=== PATIENT | female | born 1935 | race Caucasian/White ===

== ENCOUNTER 2016-11-27 11:55 | Inpatient (IN) | payer MEDICARE, OTHER ==
[~2016-11-27] VITALS: Ht 167.6 cm; Wt 50.2 kg
[2016-11-27 12:00] VITALS: BP 122/69; PULSE 90; RESP 20; TEMP 98.2; O2SAT 96
--- NOTE | 2016-11-27 12:19 | PD ---
Physical Exam Time Seen by Provider: 12:17 Narrative 81 y/o female dx with facial fracture yesterday at [facility]. Continues to have pain and was hoping to see a maxillofacial surgeon sooner which is why she is here today. Vital signs reviewed. Seen at triage desk. Awaiting bed placement. Data Data Last Documented VS Vital Signs Date Time Temp Pulse Resp B/P Pulse Ox O2 Delivery O2 Flow Rate FiO2 11/27/16 12:00 98.2 90 20 122/69 96 Room Air [facility] Medical Record Reviewed: Yes Supervised Visit with DONNA: Estevan Connor Nov 27, 2016 12:19
--- NOTE | 2016-11-27 15:13 | PD ---
HPI Chief Complaint: Medical Clearance Time Seen by Provider: 15:12 Travel History International Travel<30 days: No Contact w/Intl Traveler<30days: No Traveled to known affect area: No History of Present Illness HPI 81-year-old female came to the emergency room for mandibular fracture. And says that she fell yesterday and landed on her chin. She was seen in the emergency room at [facility]. There was a CT done of her face, head and C-spine. The CT of her face shows comminuted mandibular fracture. She brought the reports with her. She was supposed to follow up with Dr. Navas in [place] who is a maxillofacial surgeon. However she found out that he does not accept Medicare. So she came to the [facility] to be seen by a facial doctor here. She ate some soup 1 hour prior to coming to the emergency room. She did not appear to be in any significant distress. [facility] Past Medical History Narrative Medical List of her past medical, surgical, social and family history was reviewed from the nursing note. Social History Tobacco Use: No Allergies-Medications (Allergen,Severity, Reaction): Coded Allergies: No Known Allergies (Unverified , 11/27/16) Comments Awaiting for the nurse to do the medication reconciliation. Reported Meds & Prescriptions Reported Meds & Active Scripts Active Reported Montelukast (Montelukast Sodium) 10 Mg Tab 10 Mg PO HS Levothyroxine (Levothyroxine Sodium) 25 Mcg Tab 25 Mcg PO DAILY Narrative Medication Awaiting for the nurse to the med reconciliation. Review of Systems Except as stated in HPI: all other systems reviewed are Neg Physical Exam Narrative GENERAL: Awake, alert, no obvious distress SKIN: Focused skin assessment warm/dry. Band-Aids on the chin applied. Chin swelling and tenderness HEAD: Atraumatic. Normocephalic. EYES: Pupils equal and round. No scleral icterus. No injection or drainage. ENT: No nasal bleeding or discharge. Mucous membranes pink and moist. NECK: Trachea midline. No JVD. CARDIOVASCULAR: Regular rate and rhythm. No murmur appreciated. RESPIRATORY: No accessory muscle use. Clear to auscultation. Breath sounds equal bilaterally. GASTROINTESTINAL: Abdomen soft, non-tender, nondistended. Hepatic and splenic margins not palpable. MUSCULOSKELETAL: No obvious deformities. No clubbing. No cyanosis. No edema. NEUROLOGICAL: Awake and alert. No obvious cranial nerve deficits. Motor grossly within normal limits. Normal speech. PSYCHIATRIC: Appropriate mood and affect; insight and judgment normal. Data Data Last Documented VS Vital Signs Date Time Temp Pulse Resp B/P Pulse Ox O2 Delivery O2 Flow Rate FiO2 11/27/16 12:00 98.2 90 20 122/69 96 Room Air Orders Complete Blood Count With Diff (11/27/16 15:26) Basic Metabolic Panel (Bmp) (11/27/16 15:26) Prothrombin Time / Inr (Pt) (11/27/16 15:26) ^ Saline Lock (11/27/16 15:26) NPO (11/27/16 15:26) Admit Order (Ed Use Only) (11/27/16 15:52) Admit To Inpatient (11/27/16 ) Vital Signs (Adult) Q4H (11/27/16 15:50) Activity Oob Ad Amie (11/27/16 15:50) Sodium Chloride 0.9% Flush (Ns Flush) (11/27/16 16:00) Sodium Chloride 0.9% Flush (Ns Flush) (11/27/16 21:00) Ondansetron Inj (Zofran Inj) (11/27/16 16:00) Scd Bilateral/Knee High JAJA.BID (11/27/16 15:50) Acetaminophen (Tylenol) (11/27/16 16:00) Acetamin-Hydrocod 325-5 Mg (Benjamin 5-325 (11/27/16 16:00) Acetamin-Hydrocod 325-7.5 Mg (Benjamin 7.5 (11/27/16 16:00) Morphine Inj (Morphine Inj) (11/27/16 16:00) Morphine Inj (Morphine Inj) (11/27/16 16:00) Naloxone Inj (Narcan Inj) (11/27/16 16:00) Docusate Sodium-Senna (Paulette-Colace) (11/27/16 21:00) Magnesium Hydroxide Liq (Milk Of Magnesi (11/27/16 16:00) Sennosides (Senokot) (11/27/16 16:00) Bisacodyl Supp (Dulcolax Supp) (11/27/16 16:00) Lactulose Liq (Lactulose Liq) (11/27/16 16:00) Inpatient Certification (11/27/16 ) Labs Laboratory Tests Test 11/27/16 15:45 White Blood Count 8.2 TH/MM3 Red Blood Count 3.85 MIL/MM3 Hemoglobin 12.9 GM/DL Hematocrit 38.3 % Mean Corpuscular Volume 99.4 FL Mean Corpuscular Hemoglobin 33.5 PG Mean Corpuscular Hemoglobin 33.7 % Concent Red Cell Distribution Width 13.9 % Platelet Count 256 TH/MM3 Mean Platelet Volume 8.4 FL Neutrophils (%) (Auto) 69.5 % Lymphocytes (%) (Auto) 18.9 % Monocytes (%) (Auto) 9.3 % Eosinophils (%) (Auto) 1.8 % Basophils (%) (Auto) 0.5 % Neutrophils # (Auto) 5.7 TH/MM3 Lymphocytes # (Auto) 1.5 TH/MM3 Monocytes # (Auto) 0.8 TH/MM3 Eosinophils # (Auto) 0.1 TH/MM3 Basophils # (Auto) 0.0 TH/MM3 CBC Comment DIFF FINAL Differential Comment Prothrombin Time 10.6 SEC Prothromb Time International 1.0 RATIO Ratio Sodium Level 141 MEQ/L Potassium Level 4.2 MEQ/L Chloride Level 107 MEQ/L Carbon Dioxide Level 26.9 MEQ/L Anion Gap 7 MEQ/L Blood Urea Nitrogen 20 MG/DL Creatinine 0.74 MG/DL Estimat Glomerular Filtration 75 ML/MIN Rate Random Glucose 123 MG/DL Calcium Level 8.9 MG/DL MDM Medical Decision Making Medical Screen Exam Complete: Yes Emergency Medical Condition: Yes Medical Record Reviewed: Yes Differential Diagnosis Mandibular fracture Narrative Course 3:35 PM I discussed the case with Dr. Gonzales who is on-call for facial and he after hearing the CT report asked me to admit the patient since she will require surgery. Awaiting for the hospitalist to call back. I have let the patient know about that and she was happy to know that she would be taken care off today. Procedures EKG Prior to Arrival: No Physician Communication Physician Communication Dr. Gonzales Diagnosis Primary Impression: Comminuted fracture of mandibular alveolar bone Qualified Code: S02.670A - Comminuted fracture of mandibular alveolar bone, closed, initial encounter Admitting Information Admitting Physician Requests: Admit Anika Cano MD Nov 27, 2016 15:13 Anika Cano MD Nov 27, 2016 15:13
[2016-11-27] MEDS ORDERED: LEVO25TA4 PO (15:34)
[2016-11-27] MEDS ORDERED: MONT10TA4 PO (15:34)
[2016-11-27] MEDS ORDERED: SENNOSIDES 8.6 MG TAB PO PRN (16:00)
[2016-11-27] MEDS ORDERED: ACETAMINOPHEN/HYDROcodone 325 MG/7.5 MG TAB PO PRN (16:00)
[2016-11-27] MEDS ORDERED: ONDANSETRON HCL 4 MG/2 ML VIAL IVP PRN (16:00)
[2016-11-27] MEDS ORDERED: LACTULOSE SYRUP 20 GM/30 ML CUP PO PRN (16:00)
[2016-11-27] MEDS ORDERED: ACETAMINOPHEN/HYDROcodone 325 MG/5 MG TAB PO PRN (16:00)
[2016-11-27] MEDS ORDERED: SODIUM CHLORIDE 0.9% FLUSH 10 ML FLUSH IV FLUSH PRN (16:00)
[2016-11-27] MEDS ORDERED: NALOXONE HCL 0.4 MG/ML AMP IV PRN (16:00)
[2016-11-27] MEDS ORDERED: ACETAMINOPHEN 325 MG TAB PO PRN (16:00)
[2016-11-27] MEDS ORDERED: BISACODYL 10 MG SUPP RECTAL PRN (16:00)
[2016-11-27] MEDS ORDERED: MORPHINE SULFATE 4 MG/ML INJ IV PRN ×2 (16:00)
[2016-11-27] MEDS ORDERED: MAGNESIUM HYDROXIDE SUSP 30 ML CUP PO PRN (16:00)
[2016-11-27 16:07] VITALS: BP 148/73; PULSE 80; RESP 17; O2SAT 99
[2016-11-27 16:24] LABS: AUTOMATED NEUTROPHIL # 5.7 TH/MM3 (1.8-7.7); BASOPHIL % 0.5 % (0.0-2.0); EOSINOPHIL # 0.1 TH/MM3 (0-0.4); EOSINOPHIL % 1.8 % (0.0-4.0); HEMATOCRIT 38.3 % (35.0-46.0); HEMO FLAGS DIFF FINAL; LYMPH % 18.9 % (9.0-44.0); LYMPHOCYTE # 1.5 TH/MM3 (1.0-4.8); MEAN CELL VOLUME 99.4 FL (80.0-100.0); MEAN CORPUSCULAR HEMOGLOBIN 33.5 PG (27.0-34.0); MEAN CORPUSCULAR HGB CONC 33.7 % (32.0-36.0); MONO % 9.3 % (0.0-8.0); NEUT % 69.5 % (16.0-70.0); PLATELET COUNT 256 TH/MM3 (150-450); RED BLOOD COUNT 3.85 MIL/MM3 (4.00-5.30); RED CELL DISTRIBUTION WIDTH 13.9 % (11.6-17.2); WHITE BLOOD COUNT 8.2 TH/MM3 (4.0-11.0)
[2016-11-27 16:31] LABS: PROTHROMBIN TIME - PATIENT 10.6 SEC (9.8-11.6)
[2016-11-27 16:48] LABS: BICARBONATE 26.9 MEQ/L (21.0-32.0); POTASSIUM 4.2 MEQ/L (3.5-5.1)
--- NOTE | 2016-11-27 16:53 | HHI.HP ---
HPI Service [facility] Hospitalists Primary Care Physician Tyron Park MD Admission Diagnosis comminuted mandibular fracture Diagnoses: Chief Complaint: Jaw pain I fell Travel History International Travel<30 Days: No Contact w/Intl Traveler <30 Da: No Traveled to Known Affected Are: No History of Present Illness 81-year-old white female with history hypothyroidism yesterday morning and fell on her face with no signs of losing consciousness was seen at [facility] and referral out to a orofacial maxillary surgeon in [place] to follow-up with her diagnosed comminuted mandibular fracture. Her family convinced her to come to [place] due to the fact that the surgeon in [place] did not take Medicare. She states since the fall she had difficulty chewing and at times had difficulty swallowing pills or solid food. She denies any other symptoms at this time. Review of Systems Constitutional: DENIES: Fatigue, Fever, Chills, Change in appetite Endocrine: DENIES: Heat/cold intolerance Eyes: DENIES: Blurred vision, Eye pain, Vision loss Ears, nose, mouth, throat: DENIES: Hearing loss, Nasal discharge, Throat pain, Ear Pain, Sinus Pain Respiratory: DENIES: Cough, Shortness of breath Cardiovascular: DENIES: Chest pain, Palpitations, Dyspnea on Exertion, Lower Extremity Edema Gastrointestinal: DENIES: Abdominal pain, Black stools, Bloody stools, Constipation, Diarrhea, Nausea, Vomiting Genitourinary: DENIES: Dysuria Musculoskeletal: COMPLAINS OF: Joint pain (jaw pain jaw pain), DENIES: Muscle aches, Stiffness Integumentary: DENIES: Rash Hematologic/lymphatic: DENIES: Bruising, Lymphadenopathy Immunologic/allergic: DENIES: Eczema Neurologic: DENIES: Headache, Localized weakness, Paresthesias Psychiatric: DENIES: Anxiety, Depression, Suicidal Ideation Past Family Social History Past Medical History Hypothyroidism Past Surgical History None Reported Medications Levothyroxine 25 MCG by mouth daily Singulair 10 mg by mouth daily at bedtime Allergies: Coded Allergies: No Known Allergies (Unverified , 11/27/16) Family History None per patient Social History Does not smoke cigarettes or drink alcohol Physical Exam Vital Signs Vital Signs Date Time Temp Pulse Resp B/P Pulse Ox O2 Delivery O2 Flow Rate FiO2 11/27/16 16:07 80 17 148/73 99 Room Air 11/27/16 12:00 98.2 90 20 122/69 96 Room Air Physical Exam GENERAL: This is a well-nourished, well-developed patient, in no apparent distress. SKIN: Mild swelling over the right sided chin HEAD: Atraumatic. Normocephalic. No temporal or scalp tenderness. EYES: Pupils equal round and reactive. Extraocular motions intact. No scleral icterus. No injection or drainage. ENT: Nose without bleeding, purulent drainage or septal hematoma. Tenderness on palpation of the right side of the chin and mandible jawline NECK: Trachea midline. No JVD or lymphadenopathy. Supple, nontender, no meningeal signs. CARDIOVASCULAR: Regular rate and rhythm RESPIRATORY: Clear to auscultation. Breath sounds equal bilaterally. No wheezes , rales, or rhonchi. GASTROINTESTINAL: Abdomen soft, non-tender, nondistended. No hepato-splenomegaly , or palpable masses. No guarding. Normoactive bowel sounds. MUSCULOSKELETAL: Extremities without clubbing, cyanosis, or edema. No joint tenderness, effusion, or edema noted. No calf tenderness. Negative Homans sign bilaterally. NEUROLOGICAL: Awake and alert to person place time and situation. Cranial nerves II through XII intact. Motor and sensory grossly within normal limits. Five out of 5 muscle strength in all muscle groups. Normal speech. Laboratory Laboratory Tests Test 11/27/16 15:45 White Blood Count 8.2 Red Blood Count 3.85 Hemoglobin 12.9 Hematocrit 38.3 Mean Corpuscular Volume 99.4 Mean Corpuscular Hemoglobin 33.5 Mean Corpuscular Hemoglobin 33.7 Concent Red Cell Distribution Width 13.9 Platelet Count 256 Mean Platelet Volume 8.4 Neutrophils (%) (Auto) 69.5 Lymphocytes (%) (Auto) 18.9 Monocytes (%) (Auto) 9.3 Eosinophils (%) (Auto) 1.8 Basophils (%) (Auto) 0.5 Neutrophils # (Auto) 5.7 Lymphocytes # (Auto) 1.5 Monocytes # (Auto) 0.8 Eosinophils # (Auto) 0.1 Basophils # (Auto) 0.0 CBC Comment DIFF FINAL Differential Comment Prothrombin Time 10.6 Prothromb Time International 1.0 Ratio Sodium Level 141 Potassium Level 4.2 Chloride Level 107 Carbon Dioxide Level 26.9 Anion Gap 7 Blood Urea Nitrogen 20 Creatinine 0.74 Estimat Glomerular Filtration 75 Rate Random Glucose 123 Calcium Level 8.9 Result Diagram: 11/27/16 1545 11/27/16 1545 Imaging Per ED physician report from [facility] show comminuted mandibular fracture 4 hospital days were dictation by Dr. Cleaning shows bilateral mandible condylar fractures with nondisplaced mandible fracture. Assessment and Plan Problem List: (1) Comminuted fracture of mandibular alveolar bone ICD Code: S02.670A Status: Acute (2) Hypothyroidism ICD Code: E03.9 Status: Chronic Assessment and Plan 1. Status post fall with comminuted bilateral condylar mandibular fractureDr. Christian consulted in the emergency recommends surgical intervention. This time will place patient nothing by mouth until evaluation with Dr. Gonzales. 2. Hypothyroidism, chronic resume Synthroid 3. DVT prophylaxisbilateral SCDs, anticoagulation will hold due to pending surgery. Physician Certification 2 Midnight Certification Type: Admission for Inpatient Services Order for Inpatient Services The services are ordered in accordance with Medicare regulations or non- Medicare payer requirements, as applicable. In the case of services not specified as inpatient-only, they are appropriately provided as inpatient services in accordance with the 2-midnight benchmark. Estimated LOS (days): 2 days is the estimated time the patient will need to remain in the hospital, assuming treatment plan goals are met and no additional complications. Post-Hospital Plan: Home Problem Qualifiers (1) Comminuted fracture of mandibular alveolar bone: Qualified Code: S02.670A - Comminuted fracture of mandibular alveolar bone, closed, initial encounter Maria Luisa Mendez MD Nov 27, 2016 16:53
[2016-11-27 17:09] VITALS: BP 151/72; PULSE 79; RESP 16
[2016-11-27 18:00] VITALS: BP 139/74; PULSE 85; RESP 18; TEMP 98; O2SAT 96
--- NOTE | 2016-11-27 18:02 | RADRPT ---
EXAM DATE/TIME: 11/27/2016 17:33 [place] COMPARISON: No previous studies available for comparison. INDICATIONS : Fall, pain and bruising to chin. RADIATION DOSE: 56.76 CTDIvol (mGy) MEDICAL HISTORY : None SURGICAL HISTORY : None. ENCOUNTER: Initial ACUITY: 1 day PAIN SCORE: 4/10 LOCATION: facial TECHNIQUE: Volumetric scanning of the facial bones was performed. Using automated exposure control and adjustme nt of the mA and/or kV according to patient size, radiation dose was kept as low as reasonably achiev able to obtain optimal diagnostic quality images. DICOM format image data is available electronicall y for review and comparison. FINDINGS: ORBITS: The orbital and infraorbital osseous structures are intact. The retroconal structures have a normal configuration. No radiopaque foreign bodies are seen. NASAL BONE: The nasal bone and maxillary spine are intact ZYGOMATIC ARCHES: Symmetric without evidence of fracture. MANDIBLE: There is evidence of acute displaced fractures involving the bilateral mandibular condyles as well as the left side of the mental protruberance. There is dislocation of the right mandibular condyle. SINUSES: The maxillary, ethmoid and frontal sinuses are intact. No air-fluid levels seen. NASAL CAVITY: The nasal septum is intact and midline. The lacrimal ducts are intact. SOFT TISSUES: No radiopaque foreign bodies seen. No soft-tissue swelling is seen. INTRACRANIAL: No intracranial air seen. CRIBIFORM PLATE: Grossly intact. CONCLUSION: Acute displaced fractures involving the bilateral mandibular condyles as well as the left side of the mental protruberance. There is dislocation of the right mandibular condyle. Alexsander Amaro MD on November 27, 2016 at 17:54 Board Certified Radiologist. This report was verified electronically.
--- NOTE | 2016-11-27 19:21 | MB ---
cc: BIMALJOSHUASULEIMAN DMD (fax to Dr. Gonzales's office) DATE OF CONSULTATION 11/27/16 REASON FOR CONSULTATION Mandible fractures. HISTORY OF PRESENT ILLNESS This is a pleasant 81-year-old female who is status post a trip and a fall in her backyard yesterday. It resulted in her having fallen on her chin and then having her mandible fractured and her symphysis bilateral condyle fracture. She then proceeded on to [facility] and then she was supposed to be done following up with the surgeon in [place] but she was unable to. She or called my office earlier today explaining their blight. Advised to have follow up in the ED at [place] for evaluation and treatment as required. I have seen and examined the patient this afternoon. She is alert, awake and oriented x3 in no acute distress. She is complaining that her bite does not line up properly and she is unable to open wide completely. Denies any fever, chills, nausea, vomiting, any shortness of breath, any difficulty swallowing or difficulty breathing or difficulty speaking. She did have some soup/milk/milk shakes three hours ago. Denies any neck pain. PAST MEDICAL HISTORY 1. Hypothyroidism 2. Minimal asthma. PAST SURGICAL HISTORY Denied MEDICATIONS 1. Levothyroxine. 2. Singulair. ALLERGIES Denied. SOCIAL HISTORY Does not smoke, drink or any illicit drug use. PHYSICAL EXAMINATION GENERAL: A well-groomed female, well-nourished in no acute distress. HEENT: Pupils equal, round, reactive to light and accommodation. Extraocular movements are intact. Positive range of movement of the neck. No tenderness noted. Mild tenderness on palpation of the anterior symphysis region chin. She has a laceration on the anterior chin which was closed up by the ED at [facility]. Intraorally, tissues are pink and well-perfused. There is no heme noted anywhere on the face or on the mouth. Bite is not in occlusion. Appears to be hitting her posterior teeth posteriorly first which is resulting in her having this anterior open bite. The patient reports that her bite was much better than this. She is also having difficulty opening up completely wide also. She is having guarding against pain. No gross tenderness near the temporomandibular joints regions. There is no false point of motion of the mandible. The anterior symphysis fracture site appears stable. IMAGING STUDIES CT scan of the facial bones shows a right side condyle fracture, a left-sided subcondylar fracture both of which are displaced and a nondisplaced mandibular symphysis fracture starting near the midline and going towards the left. LABORATORY DATA White count is 8.2, H&H is 12.9, 38.3 with platelets of 256. PT is 10.6, INR is 1.0. Chemistry - sodium is 141, potassium is 4.2, chloride is 107, 6.9, BUN is 20 and a creatinine 0.74. IMPRESSION AND PLAN This is a pleasant 81-year-old female status post trip and fall yesterday with no loss of consciousness with now having this right condylar fracture, left subcondylar fracture both are displaced, nondisplaced anterior symphysis fracture of her chin/mandible resulting in her having this malocclusion/open bite and not able to open up mouth completely. We will plan for closed reduction of these fractures. At this point, I do not believe she needs a plate for symphysis as the fracture is nondisplaced. Clinically, I am not finding any movement of that fracture site. Since she is going to be in closed reduction for several weeks with the arch bars, I believe that that should help stabilize and heal this fracture. I discussed this plan with the patient. She is amenable to that. If it does not, then we may need more surgical plating as required. Benefits, risks, indication of the procedure, procedure in detail and the options of no treatment including alternatives were discussed with this patient. Risks not limited to any postop pain, infection, bleeding, damage to the adjacent teeth, soft tissue, hard tissue, anesthesia complications, malunion, nonunion of the fracture sites, further orthodontic or dental correction as required, further surgeries as required. All questions and concerns have been answered. We will plan for the patient to the main operating room tomorrow. Keep her n.p.o. after midnight tonight. Suleiman Gonzales DMD RRT/ /6:16 PM /7:02 PM
[2016-11-27 19:25] VITALS: BP 144/62; PULSE 79; RESP 18; TEMP 96.7; O2SAT 94
[2016-11-27] MEDS: MONTELUKAST SODIUM 10 MG TAB PO SCH (20:05)
[2016-11-27] MEDS: SODIUM CHLORIDE 0.9% FLUSH 10 ML FLUSH IV FLUSH SCH (20:05)
[2016-11-27] MEDS: DOCUSATE SODIUM 50 MG/SENNA 8.6 MG TAB PO SCH (20:05)
[2016-11-27] MEDS ORDERED: LACTATED RINGER'S 1000 ML IV PRN (21:30)
[2016-11-27] MEDS ORDERED: METOPROLOL TARTRATE 25 MG TAB PO PRN (21:30)
[2016-11-27] MEDS ORDERED: POVIDONE IODINE 5% (ANTISEPSIS KIT) 4 APPLICATIONS EACH NARE PRN (21:30)
[2016-11-27] MEDS ORDERED: SODIUM CHLORID 0.9% 500 ML IV PRN (21:30)
[2016-11-27] MEDS ORDERED: CHLORHEXIDINE GLUCONATE 2 % 1 PACK (2 CLOTHS) TOPICAL PRN (21:30)
[2016-11-27] MEDS ORDERED: INSULIN HUMAN REGULAR 1,000 UNITS/10 ML VIAL SQ PRN (21:30)
[2016-11-27 23:24] VITALS: BP 129/69; PULSE 77; RESP 17; TEMP 98; O2SAT 95
[2016-11-28 04:38] VITALS: BP 141/73; PULSE 72; RESP 17; TEMP 96.7; O2SAT 96
--- NOTE | 2016-11-28 05:02 | EKG ---
Date Performed: 11/27/2016 Time Performed: 21:57:50 PTAGE: 81 years EKG: Sinus rhythm NORMAL ECG NO PREVIOUS TRACING DOCTOR: Marcello Ang Interpretating Date/Time 11/28/2016 05:02:02
[2016-11-28] MEDS: LEVOTHYROXINE SODIUM 25 MCG TAB PO SCH (05:37)
[2016-11-28 08:00] VITALS: BP 150/93; PULSE 74; RESP 18; TEMP 98.3; O2SAT 95
--- NOTE | 2016-11-28 08:32 | HHI.PR ---
Subjective Remarks Pain controlled, was able to sip liquids yesterday. Ready for surgery today. Family coming on Thursday to help her at home. Objective Vitals Vital Signs Date Time Temp Pulse Resp B/P Pulse Ox O2 Delivery O2 Flow Rate FiO2 11/28/16 04:38 96.7 72 17 141/73 96 11/27/16 23:24 98.0 77 17 129/69 95 11/27/16 19:25 96.7 79 18 144/62 94 11/27/16 18:00 98.0 85 18 139/74 96 11/27/16 17:09 79 16 151/72 11/27/16 16:07 80 17 148/73 99 Room Air 11/27/16 12:00 98.2 90 20 122/69 96 Room Air I/O 11/27/16 11/27/16 11/27/16 11/28/16 11/28/16 11/28/16 07:00 15:00 23:00 07:00 15:00 23:00 Intake Total 360 ml 0 ml Balance 360 ml 0 ml Intake Oral 360 ml 0 ml # Voids 3 2 # Bowel Movements 1 0 Result Diagram: 11/27/16 1545 11/27/16 1545 Objective Remarks GENERAL: This is a well-nourished, well-developed patient, in no apparent distress. HEENT: Mild tenderness over the mandibular area mostly so on the right side. CARDIOVASCULAR: Regular rate and rhythm RESPIRATORY: Clear to auscultation. Breath sounds equal bilaterally. No wheezes , rales, or rhonchi. GASTROINTESTINAL: Abdomen soft, non-tender, nondistended. Normal active bowel sounds MUSCULOSKELETAL: Extremities without clubbing, cyanosis, or edema. NEURO: Alert & Oriented x4 to person, place, time, situation. Moves all ext x4 A/P Problem List: (1) Comminuted fracture of mandibular alveolar bone ICD Code: S02.670A Status: Acute (2) Hypothyroidism ICD Code: E03.9 Status: Chronic Assessment and Plan 1. Status post fall with comminuted bilateral condylar mandibular fractureDr. Christian plans surgical intervention today. Continue pain control, disposition per Dr. Gonzales. 2. Hypothyroidism, chronic resume Synthroid 3. DVT prophylaxisbilateral SCDs, anticoagulation will hold due to pending surgery. Discharge Planning Discharge to home when clear by orofacial maxillary surgeon. Problem Qualifiers (1) Comminuted fracture of mandibular alveolar bone: Qualified Code: S02.670A - Comminuted fracture of mandibular alveolar bone, closed, initial encounter Maria Luisa Mendez MD Nov 28, 2016 08:32
[2016-11-28] MEDS: DOCUSATE SODIUM 50 MG/SENNA 8.6 MG TAB PO SCH ×2 (09:00→21:05)
[2016-11-28] MEDS: SODIUM CHLORIDE 0.9% FLUSH 10 ML FLUSH IV FLUSH SCH ×2 (09:14→21:06)
[2016-11-28] MEDS ORDERED: ONDANSETRON HCL 4 MG/2 ML VIAL IV PUSH ONE (11:50)
[2016-11-28] MEDS ORDERED: PROPOFOL 200 MG/20 ML AMP IV ONE (11:50)
[2016-11-28] MEDS ORDERED: NEOSTIGMINE 3 MG/3 ML SYR IV ONE (11:50)
[2016-11-28 12:00] VITALS: BP 156/78; PULSE 80; RESP 18; TEMP 98.1; O2SAT 97
[2016-11-28] MEDS ORDERED: CHLORHEXIDINE GLUCONATE 0.12% 15 ML CUP ONE ×3 (12:36→13:52)
[2016-11-28] MEDS ORDERED: LIDOCAINE 2%/EPINEPHrine PF 1:200,000 20ML SDV ONE (12:37)
[2016-11-28] MEDS ORDERED: BACITRACIN TOP OINT 15 GM TUBE ONE (12:37)
[2016-11-28] MEDS ORDERED: ACETAMINOPHEN 1000 MG/100 ML VIAL IV ONE (12:59)
[2016-11-28] MEDS ORDERED: ceFAZolin INJ 1,000 MG VIAL IV ONE (13:53)
[2016-11-28] MEDS ORDERED: LIDOCAINE 2%/EPINEPHrine 1:100,000 30ML MDV ONE (14:01)
[2016-11-28] MEDS ORDERED: DO NOT ADM ANY ANTICOAGULANT DRUGS PRN (15:25)
--- NOTE | 2016-11-28 15:26 | HHI.PR ---
Immediate Post Op Note Procedure Date: Nov 28, 2016 Pre Op Diagnosis: b/l condylar fractures - (right condyle/left subcondylar fractures) mandible symphysis fracture Post Op Diagnosis: beltran Surgeon: Ric Gonzales Yeast Culture Developer(s): dr bishop Procedure: closed reduction of right condyle/left subcondylar and mandibular symphysis fractures Complications: none Specimen(s) removed: none Estimated blood loss: minimal Anesthesia: General, Local (2%lidocaine with 1:100,000 epi 3 cc) Drains: None Patient to: PACU Patient Condition: Good Date/Time of Procedure: SEE SURGICAL CARE RECORD Ric Gonzales DMD Nov 28, 2016 15:26
[2016-11-28] MEDS ORDERED: fentaNYL CITRATE 250 MCG/5 ML AMP ONE (15:34)
[2016-11-28 16:25] VITALS: BP 137/81; PULSE 77; RESP 16; TEMP 97.7; O2SAT 99
[2016-11-28] MEDS ORDERED: ACETAMINOPHEN 325MG/HYDROcodone 7.5MG/15ML UDC PO PRN (17:00)
[2016-11-28] MEDS: CHLORHEXIDINE GLUCONATE 0.12% 15 ML CUP SWISH-SPIT SCH (18:00)
[2016-11-28 20:00] VITALS: BP 142/82; PULSE 91; RESP 17; TEMP 96.2; O2SAT 94
[2016-11-28] MEDS: MONTELUKAST SODIUM 10 MG TAB PO SCH (21:05)
[2016-11-29] VITALS: BP 152/65; PULSE 91; RESP 18; TEMP 96.3; O2SAT 96
[2016-11-29 04:00] VITALS: BP 130/70; PULSE 85; RESP 18; TEMP 96.4; O2SAT 95
[2016-11-29] MEDS: LEVOTHYROXINE SODIUM 25 MCG TAB PO SCH (05:15)
[2016-11-29 08:00] VITALS: BP 136/91; PULSE 76; RESP 16; TEMP 96; O2SAT 97
[2016-11-29] MEDS: CHLORHEXIDINE GLUCONATE 0.12% 15 ML CUP SWISH-SPIT SCH (09:00)
--- NOTE | 2016-11-29 10:00 | HHI.PR ---
Subjective Remarks pod 1 s/p closed reduction of b/l condyler fractures and mandibular symphysis fracture pt seen and examined, aaoX3, nad ambulating, voiding, tolerating po no complaints reports bite feels good Objective Vital Signs Date Time Temp Pulse Resp B/P Pulse Ox O2 Delivery O2 Flow Rate FiO2 11/29/16 08:00 96.0 76 16 136/91 97 11/29/16 04:00 96.4 85 18 130/70 95 11/29/16 00:41 21 11/29/16 00:00 96.3 91 18 152/65 96 11/28/16 20:00 96.2 91 17 142/82 94 11/28/16 16:55 Nasal Cannula 2.00 11/28/16 16:25 97.7 77 16 137/81 99 11/28/16 16:15 97.7 82 15 151/87 97 Nasal Cannula 2 11/28/16 16:00 80 15 155/82 96 Nasal Cannula 2 11/28/16 15:45 79 15 160/72 99 Nasal Cannula 3 11/28/16 15:30 81 15 159/68 98 Nasal Cannula 3 11/28/16 15:25 97.5 83 15 145/65 97 Nasal Cannula 3 11/28/16 12:00 98.1 80 18 156/78 97 I/O 11/28/16 11/28/16 11/28/16 11/29/16 11/29/16 11/29/16 07:00 15:00 23:00 07:00 15:00 23:00 Intake Total 0 ml 0 ml 1250 ml 240 ml Output Total 20 ml Balance 0 ml 0 ml 1230 ml 240 ml Intake Oral 0 ml 0 ml 0 ml 240 ml IV Total 50 ml Other 1200 ml Output Estimated Blood Loss 20 ml # Voids 2 3 2 2 # Bowel Movements 0 0 0 0 Result Diagram: 11/27/16 1545 11/27/16 1545 Objective Remarks chin laceration area stable intraorally, bite in occlusion arch bars,imf wires in position tissues pink and well perfused no tenderness to palpation wire cutters at foot of bed Assessment and Plan Assessment and Plan pod 1 s/p closed reduction of b/l condyler fractures and mandibular symphysis fracture ok to d/c to home from oms standpoint f/up [address] gonzales full liquied diet no strenuous activity/exercises wire cutters with pt at all times for emergency airway management rx - hydrocodone 7.5/325 per 15 ml - 7 ml po q 6 h prn pain keflex 250mg per 5ml, 10 ml po q 8 until finished peridex mouth rise OTC liquid Tylenol/Motrin as needed for pain/ if narcotic is not needed called pt;'s son at pt's request, no answer Ric Gonzales DMD Nov 29, 2016 10:00
[2016-11-29] MEDS: DOCUSATE SODIUM 50 MG/SENNA 8.6 MG TAB PO SCH (11:04)
[2016-11-29] MEDS: SODIUM CHLORIDE 0.9% FLUSH 10 ML FLUSH IV FLUSH SCH (11:09)
[2016-11-29 12:00] VITALS: BP 157/77; PULSE 88; RESP 17; TEMP 95.6; O2SAT 96
--- NOTE | 2016-11-30 12:44 | MP ---
cc: SULEIMAN GONZALES DMD DATE OF SURGERY: 11/28/2016 PREOPERATIVE DIAGNOSIS: Bilateral condylar fractures, specifically the right condyle, and left subcondylar fractures, mandible symphysis fracture. POSTOPERATIVE DIAGNOSIS: Bilateral condylar fractures, specifically the right condyle, and left subcondylar fractures, mandible symphysis fracture. SURGEON: Dr. Gonzales. SENIOR INSTRUCTIONAL DESIGNER: Dr. Garcias. PROCEDURE: Closed reduction of the right condyle, left subcondylar and mandibular symphysis fractures. ANESTHESIA: General, also 2% lidocaine with 1:200,000 epinephrine approximately 3 cc. COMPLICATIONS None SPECIMENS None. BLOOD LOSS Minimal DISPOSITION The patient tolerated the procedure well, extubated and taken to PACU. INDICATIONS FOR PROCEDURE: This is an 81 year-old female who is status post trip and fall a couple of days ago which resulted in having a nondisplaced fracture of the mandibular symphysis, displaced fracture of right condyle, left subcondylar region. It has resulted in her having this anterior open bite, unable to open the mouth completely. The bite is not in occlusion. In order to restore proper form and function it is necessary the patient undergo the above listed procedures. Benefits, risks, indication of the procedure, procedure in detail and the options of no treatment including alternatives were discussed with this patient. Risks not limited to any postop pain, infection, bleeding, damage to the adjacent soft tissue, hard tissue, anesthesia complications, malunion, nonunion of the fractures, further orthognathic / dental intervention, further surgeries as required. All questions and concerns were addressed and consent is signed in the chart. PROCEDURE IN DETAIL: The patient was met perioperatively. All questions and concerns were addressed. The patient went to the operating room #9, placed on the table in the supine position. She had nasal intubation to the left naris with the glide scope. Eyes were taped shut. The tube was secured and the head was wrapped in a standard OMS fashion. At this time, a time-out was taken to identify the patient, the site, the procedure, surgeon, all were in agreement. A prep was done outside the mouth. I went to the sink to scrub and came back wearing sterile attire. The patient was draped in normal systolic function. Examination under anesthesia shows that I am able to gently manipulate and line up the mandible, the condyles into right proper alignment, bite is in occlusion. There is a chip on her maxillary incisor teeth, number 7. There is some soft tissue trauma underneath the tongue especially on the left-hand side. This could be secondary to falling and biting on that side, but no surgical intervention needed at this time. A small little residual erythema around the tongue and underneath the anterior floor of the mouth. There is no sign of any infection. No bleeding, or anything that is noted at this time. She has multiple wound incisors/crowns also. The back of the throat was suctioned. Moistened Ray-Mirlande used as a throat pack. Peridex mouth rinse was done. 2% lidocaine with 1:100,000 epinephrine was injected in all four vestibular sites/quadrants. Arch bar was placed in the mandibular region using 24-gauge wires at 25 gauge wires, going from the premolar to molar, premolar to molar sites. The 24 wire is usually in the molar and premolar regions, in the canine region, but in the anterior incisors region, I used the 25 gauge wire. The fracture noted in the symphysis between 24 and 25 site, I used a 25 gauge wire around 24 and 25, and secured that to the arch bars. There is no mobility of any false point of the mandible. Bite is straight and in occlusion. There is no mobility of any fracture segments noted. Once this was done, the back of the throat was suctioned again. It was irrigated with Peridex. The back of the throat was suctioned. Mouth was suctioned. Throat pack was removed. Bite block was removed. Bite was placed into alignment using 25 gauge intermaxillary fixation wires. Bite was good in occlusion, good cusp to fossa relationship in the molars, the molars to the premolars, to the canines and the centrals. Once this was done the procedure is completed. The patient was extubated, taken to the PACU. No complications noted. Suleiman Gonzales DMD [employer]PER[employer]ENT [employer]/CHRIS /3:21 PM /12:22 PM
--- NOTE | 2016-12-01 10:50 | HHI.DS ---
Discharge Summary Admission Date Nov 27, 2016 at 15:54 Discharge Date: Nov 29, 2016 Admitting Diagnosis comminuted mandibular fracture (1) Comminuted fracture of mandibular alveolar bone ICD Code: S02.670A (2) Hypothyroidism ICD Code: E03.[address] Gonzales 11/28 Brief History - From Admission 81-year-old white female with history hypothyroidism yesterday morning and fell on her face with no signs of losing consciousness was seen at [facility] and referral out to a orofacial maxillary surgeon in [place] to follow-up with her diagnosed comminuted mandibular fracture. Her family convinced her to come to [place] due to the fact that the surgeon in [place] did not take Medicare. She states since the fall she had difficulty chewing and at times had difficulty swallowing pills or solid food. She denies any other symptoms at this time. CBC/BMP: 11/27/16 1545 11/27/16 1545 Imaging Last Impressions Maxillofacial CT 11/27/16 0000 Signed Impressions: Service Date/Time: November 17:33 - CONCLUSION: Acute displaced fractures involving the bilateral mandibular condyles as well as the left side of the mental protruberance. There is dislocation of the right mandibular condyle. Alexsander Amaro MD PE at Discharge GENERAL: This is a well-nourished, well-developed patient, in no apparent distress.alert and oriented 3. HEENT: jaw has been wired. Appears to be speaking affectively however. CARDIOVASCULAR: Regular rate and rhythm RESPIRATORY: Clear to auscultation. Breath sounds equal bilaterally. No wheezes , rales, or rhonchi. GASTROINTESTINAL: Abdomen soft, non-tender, nondistended. Normal active bowel sounds MUSCULOSKELETAL: Extremities without clubbing, cyanosis, or edema. NEURO: Alert & Oriented x4 to person, place, time, situation. Moves all ext x4 Pt update on day of discharge patient feeling well. would like to go home. Hospital Course patient underwentmandibular surgery on 11/28. Jaw wired. Patient has been supplied with wire cutters. Comfortable discharging home.. Diet. Follow-up with Dr. Gonzales For problem-based summary from most recent progress note, please see below. 1. Status post fall with comminuted bilateral condylar mandibular fractureDr. Christian plans surgical intervention today. Continue pain control, disposition per Dr. Gonzales. 2. Hypothyroidism, chronic resume Synthroid 3. DVT prophylaxisbilateral SCDs, anticoagulation will hold due to pending surgery. Pt Condition on Discharge: Good Discharge Disposition: Discharge Home Discharge Time: <= 30 minutes Discharge Instructions DIET: Follow Instructions for: As Tolerated, No Restrictions Speech Therapy-Diet Recommends: Pureed Activities you can perform: Regular-No Restrictions Other Activity Instructions: keep wire cutters on you at all times. Follow up Referrals: Oral Maxillary Surgery with Ric Gonzales DMD PCP Follow-up - 1 Week Continued Medications: Levothyroxine (Levothyroxine) 25 Mcg Tab 25 MCG PO DAILY Thyroid #30 Ref 0 TAB Montelukast (Montelukast) 10 Mg Tab 10 MG PO HS #30 Ref 0 TAB Chato Trivedi MD Dec 01, 2016 10:50
== END 2016-11-29 12:40 | disposition home or self-care (01) | DRG 159 ==
LOC: NEPD 11:55 → NEDA 15:54 → N06A 17:46
PROVIDERS: ADMIT Internal Medicine; ATTEND Internal Medicine
PROC: 0NSTXZZ Reposition Right Mandible, External Approach (ICD-10-PCS; 2016-11-28)
PROC: 2W31X9Z Immobilization of Face using Wire (ICD-10-PCS; 2016-11-28)
PROC: 0NSVXZZ Reposition Left Mandible, External Approach (ICD-10-PCS; principal; 2016-11-28 13:36)
DX: S02.611A Fracture of condylar process of right mandible, initial encounter for closed fracture (principal); S02.622A Fracture of subcondylar process of left mandible, initial encounter for closed fracture; S02.66XA Fracture of symphysis of mandible, initial encounter for closed fracture; M26.4 Malocclusion, unspecified; W01.0XXA Fall on same level from slipping, tripping and stumbling without subsequent striking against object, initial encounter; Y92.007 Garden or yard of unspecified non-institutional (private) residence as the place of occurrence of the external cause; E03.9 Hypothyroidism, unspecified
CPT/HCPCS: 70486; 80048; 85025; 85610; 93005; J0131; J0690; J2405; J2710; J3010